=== PATIENT | female | born 1965 | race Caucasian/White ===

== ENCOUNTER → 2019-09-10 | Outpatient (CLI) | payer MEDICARE, MEDICAID, SELFPAY ==
[2016-09-25 12:14] VITALS: BMI 20.7
[2019-09-10 17:35] LABS: Hematocrit 42.4 % (37-47); Hemoglobin 13.9 g/dL (12.0-15.0); Mean Corp Hgb Conc 32.8 g/dL (32-36); Mean Corpuscular Hgb 30.9 pg (27.0-32.0); Mean Corpuscular Volume 94.2 fL (81-99); Mean Platelet Vol. 9.7 fl (6.2-12.0); Platelet Count 349 K/mm3 (150-450); RBC Distribution Width CV 13.1 % (11.6-14.6); RBC Distribution Width SD 44.8 fl (35.1-43.9); White Blood Count 9.9 K/mm3 (4.4-11.0)
[2019-09-10 18:18] LABS: AST(SGOT) 18 U/L (15-37); Alanine Aminotransfer ALT/SGPT 31 U/L (13-56); Albumin, Serum 3.8 g/dL (3.2-5.0); Alkaline Phosphatase 109 U/L (45-117); Bilirubin, Direct 0.08 mg/dL (0.00-0.30); CRP < 2.90 mg/L (0.0-3.0); Protein, Total 7.8 g/dL (6.4-8.2)
[2019-09-10 18:23] LABS: Erythrocyte Sedimentation Rate 10 mm/hr (0-30)
== END | disposition home or self-care (01) ==
LOC: MTLAB 14:58
PROVIDERS: PCP Student in an Organized Health Care Education/Training Program; Referring Provider Internal Medicine Gastroenterology; Visit Provider Internal Medicine Gastroenterology
DX: K50.90 Crohn's disease, unspecified, without complications (principal)
CPT/HCPCS: 36415; 80076; 85027; 85652; 86140

== ENCOUNTER → 2019-09-15 | Outpatient (CLI) | payer MEDICARE, MEDICAID, SELFPAY ==
[2016-09-25 12:14] VITALS: BMI 20.7
--- NOTE | 2019-09-15 14:15 | ASPSI_PTH ---
PATIENT: DANNA HDZ [facility] U#:[id number] AGE/SX: 53/F ROOM: RE09/15/[address]: Dr. Mikie Nieto DO : 1965 BED: DIS: 09/15/2019 SPEC #: [id number] RECD: 09/16/19 12:04 STATUS: DOMONIQUE ELENA #: [id number] JANELL: 09/15/19 14:[address]: Bethanie Cazares DEPT: CYTOLOGY RECD BY: Tyron Yung ENTERED: 09/17/19 11:00 SP TYPE: ASP [place] GO DR: Dr. Mikie Nieto DO Tissues: A - Thyroid gland, NOS B - Thyroid gland, NOS C - Thyroid gland, NOS D - Thyroid gland, NOS Procedures: Surgery Specimen Level IV Cytospin Fluid Cytology Other HEADER OPERATION: Ultrasound-guided bilateral thyroid fine needle aspiration PRE-OP DIAGNOSIS: Thyroid nodules TISSUE SUBMITTED: A - FNA right thyroid fluid for cytology, B - FNA right thyroid slides x8, C - FNA left thyroid fluid for cytology, D - FNA left thyroid slides x4 DIAGNOSIS CYTOLOGY A. Fine needle aspiration, right thyroid nodule (cytospin and cell block): Adequate for evaluation. Negative, consistent with benign follicular nodule. B. Fine needle aspiration, right thyroid nodule (smears): Adequate for evaluation. Negative, consistent with benign colloid/follicular nodule. C. Fine needle aspiration, left thyroid nodule (cytospin and cell block): Macrophages and blood, consistent with benign cyst contents. D. Fine needle aspiration, left thyroid nodule (smears): Adequate for evaluation. Negative, consistent with benign colloid/follicular nodule. See comment. AM:marialuisa 09/18/19 COMMENT D. The specimen is hypocellular. Clinical correlation is suggested. CYTOLOGY STUDY Slides are reviewed. CYTOLOGY GROSS A - Received is 40 ml of brown cloudy fluid labeled with the patient's name and and designated per the requisition as right thyroid. Submitted for cytology preparation including cell block. B - Received are eight smears labeled with the patient's name and designated per the requisition as right thyroid. Submitted for staining. C - Received is 40 ml of light brown cloudy fluid labeled with the patient's name and and designated per the requisition as left thyroid. Submitted for cytology preparation including cell block. D - Received are four smears labeled with the patient's name and designated per the requisition as left thyroid. Submitted for staining. / marialuisa 09/17/19 TC:5 CPT: 07928 x2, 62806 x2, 29669 x2
== END | disposition home or self-care (01) ==
LOC: LABSPEC 09-17 14:48
PROVIDERS: PCP Student in an Organized Health Care Education/Training Program; Referring Provider Student in an Organized Health Care Education/Training Program; Visit Provider Student in an Organized Health Care Education/Training Program
DX: E04.2 Nontoxic multinodular goiter (principal)
CPT/HCPCS: 88108; 88161; 88305

== ENCOUNTER → 2019-09-19 | Outpatient (CLI) | payer MEDICARE, MEDICAID, SELFPAY ==
[2016-09-25 12:14] VITALS: BMI 20.7
== END | disposition home or self-care (01) ==
LOC: MTDU 17:41
PROVIDERS: PCP Student in an Organized Health Care Education/Training Program; Visit Provider Internal Medicine Gastroenterology
DX: Z11.59 Encounter for screening for other viral diseases (principal)
CPT/HCPCS: 87635; G2023; U0003

== ENCOUNTER → 2019-09-19 | Outpatient (CLI) | payer MEDICARE, MEDICAID, SELFPAY ==
[2016-09-25 12:14] VITALS: BMI 20.7
--- NOTE | 2019-09-19 15:37 | CT_ITS ---
STUDY: CT ABDOMEN AND PELVIS WITH CONTRAST REASON FOR EXAM: Female, 53 years old. Crohn''s disease. Fistula. History of prior ileostomy. RADIATION DOSAGE (If Supplied By Facility): CTDIvol = ( 10.08 ) mGy, DLP = ( 607.07 ) mGycm TECHNIQUE: Transaxial images were obtained from the dome of the diaphragm to the symphysis pubis without oral contrast. Oral and amp; IV Breeza and amp; 100mL Isovue-300 was administered. Sagittal and coronal images were reconstructed. Individualized dose optimization techniques were used for this CT. COMPARISON: None. FINDINGS: The visualized lung bases are unremarkable. The visualized portions of the heart are within normal limits. The liver is normal in size, contour and enhancement. There is a 1 cm cyst in segment 2 of the liver. No other masses are seen. Normal gallbladder and extrahepatic biliary system. Normal spleen. Normal pancreas. Normal right adrenal gland. This is a small hypodensity in the left adrenal gland suggesting adenoma. This measures 7 x 5 x 5 mm. Normal right kidney. Normal left kidney. The stomach is distended with fluid. There is distended and fluid-filled loops of small bowel. The colon is absent. There is a right lower quadrant ileostomy which protrudes slightly beyond the abdominal surface. Normal abdominal aorta. Normal inferior vena cava. Normal retroperitoneum. Normal urinary bladder. Normal uterus. Is evidence of tubal ligation. No adnexal abnormality. No pelvic lymphadenopathy. No free air or free fluid within the peritoneal cavity. Normal abdominal wall. Normal osseous structures. CT/Abdomen/Pelvis WITH Contrast IMPRESSION: 1. CT enterography with normal appearing small bowel. There is no evidence of stricture obstruction or fistula. 2. Right lower quadrant ileostomy. There is evidence of complete resection of the colon. 3. Hepatic cysts. 4. Left adrenal adenoma. Electronically Signed: Herbert Mccollum DO at 17:01 EDT Tel [phone], Service support ,
== END | disposition home or self-care (01) ==
LOC: CT 15:31
PROVIDERS: PCP Student in an Organized Health Care Education/Training Program; Referring Provider Internal Medicine Gastroenterology; Visit Provider Internal Medicine Gastroenterology
DX: K50.90 Crohn's disease, unspecified, without complications (principal); Z11.59 Encounter for screening for other viral diseases
CPT/HCPCS: 74177; 87635; G2023; Q9967; U0003

== ENCOUNTER → 2020-03-30 | Outpatient (CLI) | payer MEDICARE, MEDICAID, SELFPAY ==
[2016-09-25 12:14] VITALS: BMI 20.7
--- NOTE | 2020-03-29 13:30 | FLU_PTH ---
PATIENT: DANNA HDZ LOC: [facility] U#:[id number] AGE/SX: 54/F ROOM: RE03/30/[address]: Dr. Bethanie Cazares MD : 1965 BED: DIS: 03/30/2020 SPEC #: [id number] RECD: 03/30/20 11:55 STATUS: DOMONIQUE REBerna #: [id number] JANELL: 03/29/20 13:[address]: Bethanie Cazares DEPT: CYTOLOGY RECD BY: Marj Garcia ENTERED: 03/30/20 13:06 SP TYPE: Fluid OTHR DR: Dr. Mikie Nieto DO Tissues: A - Thyroid gland, NOS B - Thyroid gland, NOS C - Thyroid gland, NOS D - Thyroid gland, NOS Procedures: Special Stain Group II Surgery Specimen Level IV Cytospin Fluid HEADER OPERATION: Ultrasound-guided fine needle aspiration of bilateral thyroid PRE-OP DIAGNOSIS: Thyroid nodules TISSUE SUBMITTED: A - FNA right thyroid fluid, B - FNA right thyroid slides x8, C - FNA left thyroid fluid, D - FNA left thyroid slides x8 DIAGNOSIS CYTOLOGY A. Fine needle aspiration, right thyroid nodule (cytospin and cell block): Negative for malignant cells. See comment. B. Fine needle aspiration, right thyroid nodule (smears): Adequate for evaluation. Negative, consistent with benign follicular/colloid nodule. C. Fine needle aspiration, left thyroid nodule (cytospin and cell block): Adequate for evaluation. Negative, consistent with benign follicular/colloid nodule. D. Fine needle aspiration, left thyroid nodule (smears): Adequate for evaluation. Negative, consistent with benign follicular/colloid nodule. AM:marialuisa 03/31/2020 COMMENT A. The specimen contains rare colloid material, scattered benign follicular cells and blood. CYTOLOGY STUDY Slides are reviewed. CYTOLOGY GROSS A - Received is 30 ml of red cloudy fluid labeled with the patient's name and and designated per the requisition as right thyroid. Submitted for cytology preparation including cell block. B - Received are eight smears labeled with the patient's name and designated per the requisition as right thyroid. Submitted for staining. C - Received is 30 ml of red cloudy fluid labeled with the patient's name and and designated per the requisition as left thyroid. Submitted for cytology preparation including cell block. D - Received are eight smears labeled with the patient's name and designated per the requisition as left thyroid. Submitted for staining. / marialuisa 03/30/2020 TC:5 CPT: 81417 x2, 25836 x2, 16776 x2
== END | disposition home or self-care (01) ==
LOC: LABSPEC 12:53
PROVIDERS: PCP Student in an Organized Health Care Education/Training Program; Referring Provider Surgery; Visit Provider Surgery
DX: E04.2 Nontoxic multinodular goiter (principal)
CPT/HCPCS: 88108; 88305; 88313

== ENCOUNTER → 2023-12-10 | Outpatient (CLI) | payer MEDICARE, MEDICAID, SELFPAY ==
--- NOTE | 2023-12-10 14:01 | US_ITS ---
INDICATION: Systemic lupus erythematosus, unspecified -- CKD EXAMINATION: Ultrasound US Kidney(s) complete (eg, kidneys and bladder) TECHNIQUE: Almanzar scale and color doppler images were obtained of the kidneys. COMPARISON: FINDINGS: RIGHT KIDNEY: 10.3 x 4.2 x 3.3 cm. The cortex is 10 mm. There is no hydronephrosis. No shadowing calculus or perinephric collection is demonstrated. There is a 1.3 cm cyst. LEFT KIDNEY: 9.8 x 4.5 x 2.7 cm. The cortex is 10 mm. There is no hydronephrosis. No shadowing calculus, focal lesion or perinephric collection is demonstrated. URINARY BLADDER: Borderline wall thickness. US/Kidney and Bladder IMPRESSION: Right renal cyst. Borderline wall thickness of the urinary bladder. Electronically Signed: Jimmy Mendoza DO at 20:40 EDT Reading Location ID and State: [facility] / [place] Tel [phone], Service support ,
== END | disposition home or self-care (01) ==
PROVIDERS: PCP Student in an Organized Health Care Education/Training Program; Referring Provider Internal Medicine Nephrology; Visit Provider Internal Medicine Nephrology
DX: M32.9 Systemic lupus erythematosus, unspecified (principal)
CPT/HCPCS: 76770

== ENCOUNTER 2024-10-13 13:40 | Outpatient (CLI) | payer MEDICARE, MEDICAID, SELFPAY ==
--- NOTE | 2024-10-13 | FLU_PTH ---
PATIENT: DANNA HDZ LOC: [facility] U#:[id number] AGE/SX: 58/F ROOM: RE10/13/[address]: Dr. Kedar Bauman MD : 1965 BED: DIS: 10/13/2024 SPEC #: [id number] RECD: 10/13/24 13:40 STATUS: DOMONIQUE REBerna #: [id number] JANELL: 10/13/24 00:[address]: Kedar Bauman DEPT: CYTOLOGY RECD BY: Nelson Calles ENTERED: 10/13/24 15:47 SP TYPE: Fluid OTHR DR: Dr. Mikie Nieto, Tissues: A - Thyroid gland, NOS Procedures: Special Stain Group II Surgery Specimen Level IV Cytospin Fluid HEADER OPERATION: Fine needle aspiration of left thyroid nodule PRE-OP DIAGNOSIS: Left thyroid nodule TISSUE SUBMITTED: A- Left thyroid nodule DIAGNOSIS CYTOLOGY A. Left thyroid, nodule, FNA (cytospin, smear x6): - Benign (TBS II). - Consistent with follicular nodular disease. COMMENT The specimen is evaluated at the time of biopsy by Dr. Browne. Immediate Evaluation = 1. Acellular, possible colloid. 2. Acellular, possible colloid. Gel artifact. 5. Blood. CYTOLOGY STUDY Slides are reviewed. CYTOLOGY GROSS A. Received is 30 ml of pink-cloudy cytolyt with particles and 4 smears labeled with the patient's name and and designated per the requisition as Left mid thyroid nodule. Submitted for cytology and cytospin. Mr 10/13/2024 CPT: 52538,40885
== END 2024-10-13 23:59 | disposition home or self-care (01) ==
PROVIDERS: PCP Student in an Organized Health Care Education/Training Program; Visit Provider Surgery
DX: E04.9 Nontoxic goiter, unspecified (principal)
CPT/HCPCS: 88108; 88305; 88313